=== PATIENT | female | born 1975 | race Two or more races ===

== ENCOUNTER 2017-03-21 06:05 | Day surgery (SDC) | payer BC ==
[~2017-03-21] VITALS: Ht 165.1 cm; Wt 93.0 kg
[~2017-03-21 06:05] MED LIST: ONE DAILY COMP1 EAC1 PO; PRENATAL COMPL1 EACH PO; PRENATAL TABLE1 EAC3 PO; TYLENOL EXTRA500 MG PO
[2017-03-21 07:17] VITALS: BP 111/72
[2017-03-21] MEDS ORDERED: PERCOCET 5/31 TABLET PO (09:05)
[2017-03-21] MEDS ORDERED: MOTRIN800 MG PO (09:05)
[2017-03-21 10:11] VITALS: BP 101/58
[2017-03-21 11:10] VITALS: BP 101/63
== END 2017-03-21 11:25 | disposition home or self-care (01) ==
LOC: SDC 06:05
PROC: 10D17ZZ Extraction of Products of Conception, Retained, Via Natural or Artificial Opening (ICD-10-PCS; principal; 2017-03-21)
DX: O03.4 Incomplete spontaneous abortion without complication (principal); Z3A.01 Less than 8 weeks gestation of pregnancy
CPT/HCPCS: 86850; 86900; 86901; 88305; J0690; J1100; J1885; J2250; J2405; J3010